=== PATIENT | male | born 1970 | race African-American/Black ===

== ENCOUNTER 2023-12-25 14:23 | Emergency (ER) | payer MEDICAID, OTHER ==
[~2023-12-25] VITALS: Ht 172.7 cm; Wt 65.0 kg
[2023-12-25 14:25] VITALS: O2SAT 96
[2023-12-25] MEDS: ACETAMINOPHEN 325MG TABLET PO STA (15:03)
[2023-12-25] MEDS: ONDANSETRON HCL 4MG/2ML INJ IV STA (15:03)
[2023-12-25] MEDS: SODIUM CHLORIDE 0.9% 1,000 ML IV ONE (15:04)
[2023-12-25 16:15] LABS: HEMATOCRIT. 41.8 % (42.0-52.0); HEMOGLOBIN. 13.7 g/dL (14.0-18.0); MEAN CORPUSCULAR HGB CONC 32.8 g/dL (31.0-37.0); MEAN CORPUSCULAR VOLUME 91.5 fL (80.0-94.0); PLATELET 285 x1000/uL (130-400); RED BLOOD CELL COUNT 4.56 mill/uL (4.7-6.1); RED CELL DISTRIBUTION WIDTH 12.7 % (11.6-14.6); WHITE BLOOD COUNT 9.6 x1000/uL (4.5-11.0)
[2023-12-25 16:17] LABS: DIFFERENTIAL COMMENT 1
[2023-12-25 16:23] LABS: PROTHROMBIN TIME 10.9 sec (9.6-11.0)
[2023-12-25 16:30] LABS: ALANINE AMINOTRANSFERASE 24 IU/L (10-49); ALBUMIN 4.4 g/dL (3.2-4.8); ASPARTATE AMINOTRANSFERASE 25 IU/L (<34); BILIRUBIN TOTAL 0.6 mg/dL (0.1-1.0); CALCIUM 9.5 mg/dL (8.7-10.4); CARBON DIOXIDE 28 mEq/L (21-32); CHLORIDE 99 mEq/L (98-107); CREATININE 0.9 mg/dL (0.6-1.3); GLUCOSE 87 mg/dL (70-105); POTASSIUM 4.4 mEq/L (3.5-5.1); PROTEIN TOTAL 7.1 g/dL (6.0-8.3); SODIUM 134 mEq/L (136-145); UREA NITROGEN BLOOD 9 mg/dL (9-23)
[2023-12-25 16:46] LABS: PLATELET ESTIMATE NORMAL
[2023-12-25 16:50] LABS: ETHANOL BLOOD < 10 mg/dL (<10); TROPONIN I HIGH SENSITIVITY < 4 ng/L (3.0-53)
[2023-12-25 17:00] VITALS: BP 132/83; PULSE 94; RESP 15; TEMP 98.6
[2023-12-25] MEDS ORDERED: ACET-2708 MT (18:37)
== END 2023-12-25 18:55 | disposition home or self-care (01) ==
LOC: ER 14:23
DX: R51.9 Headache, unspecified (principal); R53.1 Weakness; J45.909 Unspecified asthma, uncomplicated
CPT/HCPCS: 80053; 80320; 83690; 85025; 85610; 84484; 36415; 71045; 70450; 93005; 96361; 96374; 99285; J2405; J7030; G0480